=== PATIENT | female | born 1985 | race Caucasian/White ===

== ENCOUNTER 2017-11-18 15:25 | Emergency (ER) | payer SELFPAY ==
[~2017-11-18] VITALS: Ht 162.6 cm; Wt 80.0 kg
[2017-11-18 15:39] VITALS: BP 131/69; PULSE 88; RESP 18; TEMP 98.2; O2SAT 99
== END 2017-11-18 16:50 | disposition left against medical advice (07) ==
LOC: NED 15:25
DX: R10.9 Unspecified abdominal pain (principal); Z53.21 Procedure and treatment not carried out due to patient leaving prior to being seen by health care provider
CPT/HCPCS: 99281